=== PATIENT | male | born 1940 | race Caucasian/White ===

== ENCOUNTER → 2018-02-18 | Outpatient (CLI) | payer OTHER ==
[~2018-02-18] MED LIST: ASPI-496 PO; DOCU-131 PO; FENO160T PO; FINA5TAB4 PO; FLUO40CA2 PO; GEMF600T3 PO; GLIM1TAB2 PO; LEVO50TA5 PO; LOVA40TA2 PO; METF850T2 PO; OMEP20TA62 PO; OXYC-302 PO; TAMS0.4C2 PO; TEST200V3 IM; TIZA4TAB PO
[2018-02-18 13:12] LABS: BASOPHILS # (AUTO) 0.03 x10^3/uL (0-0.1); BASOPHILS % (AUTO) 1 % (0-1); EOSINOPHILS # (AUTO) 0.08 x10^3/uL (0-0.4); EOSINOPHILS % (AUTO) 2 % (1-7); LYMPHOCYTES # (AUTO) 1.53 x10^3/uL (1-3.4); LYMPHOCYTES % (AUTO) 30 % (22-44); MD NO; MEAN CORPUSCULAR HEMOGLOBIN 30.4 pg (27.5-34.5); MEAN CORPUSCULAR HGB CONC 33.2 g/dL (33.2-36.2); MEAN CORPUSCULAR VOLUME 91.6 fL (81-97); MEAN PLATELET VOLUME 8.4 fL (7.4-10.4); MONOCYTES # (AUTO) 0.49 x10^3/uL (0.2-0.8); MONOCYTES % (AUTO) 10 % (2-9); NEUTROPHILS # (AUTO) 2.93 x10^3/uL (1.8-6.8); NEUTROPHILS % (AUTO) 58 % (42-75); PLATELET COUNT 272 x10^3/uL (130-400); RED BLOOD COUNT 4.41 x10^6/uL (4.38-5.82); RED CELL DISTRIBUTION WIDTH 14.2 % (9.4-14.8)
[2018-02-18 13:21] LABS: INTERNATIONAL NORMALIZED RATIO 1.04 (0.93-1.1); PROTHROMBIN TIME 10.8 Seconds (9.6-11.5)
[2018-02-18 13:26] LABS: ALANINE AMINOTRANSFERASE 43 U/L (12-78); ALBUMIN 3.7 g/dL (3.4-5.0); ANION GAP 7 mmol/L (5-15); CALCIUM 8.4 mg/dL (8.5-10.1); CHLORIDE 112 mmol/L (98-107); CREATININE 1.03 mg/dL (0.7-1.3)
[2018-02-18 13:28] LABS: ALKALINE PHOSPHATASE 60 U/L (45-117); BILIRUBIN,TOTAL 0.5 mg/dL (0.2-1.0); TOTAL PROTEIN 7.9 g/dL (6.4-8.2)
== END | disposition home or self-care (01) ==
LOC: STAR 12:28
PROVIDERS: ATTEND Neurological Surgery
DX: Z01.818 Encounter for other preprocedural examination (principal); M48.061 Spinal stenosis, lumbar region without neurogenic claudication; I49.1 Atrial premature depolarization; J44.9 Chronic obstructive pulmonary disease, unspecified
CPT/HCPCS: 36415; 71046; 80053; 85025; 85610; 85730; 93005

== ENCOUNTER 2018-03-04 10:03 | Inpatient (IN) | payer OTHER ==
[~2018-03-04] VITALS: Ht 162.6 cm; Wt 103.3 kg
[~2018-03-04 10:03] MED LIST changes: +BACITRACIN 50,000 UNIT ONE; +BACITRACIN OINT 500U/GM, 15 GM ONE; +BUPIVACAINE/PF 0.25% ONE; +THROMBIN 20,000 UNIT VIAL TP ONE
[2018-03-04] MEDS ORDERED: LACTATED RINGERS 1,000 ML IV SCH (10:27)
[2018-03-04] MEDS ORDERED: GABAPENTIN 300 MG CAPSULE PO ONE (10:30)
[2018-03-04] MEDS ORDERED: METOCLOPRAMIDE 10MG TABLET PO ONE (10:30)
[2018-03-04] MEDS ORDERED: DIAZEPAM 5 MG TABLET PO ONE (10:30)
[2018-03-04] MEDS ORDERED: FAMOTIDINE 20 MG TABLET PO ONE (10:30)
[2018-03-04] MEDS ORDERED: ACETAMINOPHEN 500 MG TABLET PO ONE (10:30)
[2018-03-04 11:01] VITALS: BP 153/85
[2018-03-04] MEDS ORDERED: MIDAZOLAM 1 MG/ML, 2ML ONE (11:41)
[2018-03-04] MEDS ORDERED: FENTANYL PF 250 MCG/5ML ONE (11:41)
[2018-03-04] MEDS ORDERED: ROCURONIUM 10 MG/ML,10ML ONE (12:28)
[2018-03-04] MEDS ORDERED: CEFAZOLIN 1,000 MG ONE (12:28)
[2018-03-04] MEDS ORDERED: DEXAMETHASONE 4 MG/ML, 1ML ONE (12:28)
[2018-03-04] MEDS ORDERED: PHENYLEPHRINE 10 MG/ML ONE (12:28)
[2018-03-04] MEDS ORDERED: PROPOFOL 10 MG/ML, 20ML ONE (12:28)
[2018-03-04] MEDS ORDERED: SUCCINYLCHOLINE 20 MG/ML, 10ML ONE (12:28)
[2018-03-04] MEDS ORDERED: KETAMINE 10 MG/ML, 20ML ONE (12:28)
[2018-03-04] MEDS ORDERED: PROPOFOL 50 ML ONE (14:04)
[2018-03-04] MEDS ORDERED: BACITRACIN OINT 500U/GM, 15 GM TP ONE (14:54)
[2018-03-04] MEDS ORDERED: ONDANSETRON ODT 8 MG PO PRN (15:00)
[2018-03-04] MEDS ORDERED: DIAZEPAM 5 MG/ML, 2ML IVPush PRN (15:00)
[2018-03-04] MEDS ORDERED: PROMETHAZINE 25 MG/ML, 1ML IV PRN (15:00)
[2018-03-04] MEDS ORDERED: OXYcodone 5 MG/5 ML ORAL.SOL UDC PO PRN (15:00)
[2018-03-04] MEDS ORDERED: MORPHINE SULFATE 4 MG/ML, 1ML IVPush PRN (15:00)
[2018-03-04] MEDS ORDERED: ALBUTEROL SULFATE 2.5 MG/3 ML NPPB PRN (15:00)
[2018-03-04] MEDS ORDERED: FENTANYL PF 100 MCG/2ML IV PRN (15:00)
[2018-03-04] MEDS ORDERED: OXYcodone 5 MG/5 ML ORAL.SOL UDC ONE (15:40)
[2018-03-04] MEDS ORDERED: METHOCARBAMOL 1,000 MG in DEXTROSE 5% 100 ML IV ONE (16:00)
[2018-03-04] MEDS ORDERED: BISACODYL 10 MG SUPP PR PRN (18:30)
[2018-03-04] MEDS ORDERED: ONDANSETRON 2MG/ML, 2ML IV PRN (18:30)
[2018-03-04] MEDS ORDERED: ACETAMINOPHEN 325 MG TABLET PO PRN (18:30)
[2018-03-04] MEDS ORDERED: DIPHENHYDRAMINE 50 MG/ML, 1ML IVPush PRN (18:30)
[2018-03-04] MEDS ORDERED: OMEPRAZOLE 20 MG CAPSULE.DR PO PRN (18:30)
[2018-03-04] MEDS ORDERED: MAGNESIUM HYDROXIDE 8%, 30ML UDC PO PRN (18:30)
[2018-03-04] MEDS ORDERED: DIPHENHYDRAMINE 50 MG CAPSULE PO PRN (18:30)
[2018-03-04] MEDS ORDERED: PROMETHAZINE 25 MG/ML, 1ML IM PRN (18:30)
[2018-03-04] MEDS ORDERED: ACETAMINOPHEN 650 MG SUPP PR PRN (18:30)
[2018-03-04] MEDS ORDERED: DIPHENHYDRAMINE 50 MG/ML, 1ML IM PRN (18:30)
[2018-03-04] MEDS ORDERED: CYCLOBENZAPRINE 10 MG TABLET PO PRN (18:30)
[2018-03-04] MEDS: morphine SULFATE 10 MG/ML, 1ML IV PRN (18:37)
[2018-03-04 18:55] VITALS: BP 149/88
[2018-03-04] MEDS: NS + 20MEQ KCL 1,000 ML IV SCH (20:13)
[2018-03-04] MEDS: FLUOXETINE HCL 20 MG CAPSULE PO SCH (20:14)
[2018-03-04] MEDS: LOVASTATIN 40 MG TABLET PO SCH (20:14)
[2018-03-04] MEDS: INSULIN REGULAR 100 UNITS/ML, 3ML VIAL SQ-INSULIN SCH (20:44)
[2018-03-04] MEDS: CEFAZOLIN PMX 2GM/50ML 50 ML IVPB SCH (21:07)
[2018-03-04] MEDS: OXYcodone/APAP 5/325MG TABLET PO PRN (21:43)
[2018-03-04 23:37] VITALS: BP 119/75
[2018-03-04] MEDS: METHOCARBAMOL 750 MG in DEXTROSE 5% 100 ML IV SCH (23:50)
[2018-03-05] MEDS: OXYcodone/APAP 5/325MG TABLET PO PRN ×4 (02:00→21:30)
[2018-03-05 03:22] VITALS: BP 129/69
[2018-03-05] MEDS: NS + 20MEQ KCL 1,000 ML IV SCH ×2 (04:30→05:36)
[2018-03-05] MEDS: CEFAZOLIN PMX 2GM/50ML 50 ML IVPB SCH (05:35)
[2018-03-05] MEDS: LEVOTHYROXINE 50 MCG TABLET PO SCH (05:36)
[2018-03-05] MEDS: INSULIN REGULAR 100 UNITS/ML, 3ML VIAL SQ-INSULIN SCH ×4 (06:17→21:00)
[2018-03-05 07:31] VITALS: BP 182/71
[2018-03-05] MEDS: SENNA/DOCUSATE TABLET PO SCH (08:39)
[2018-03-05] MEDS: FINASTERIDE 5 MG TABLET PO SCH (08:39)
[2018-03-05] MEDS: FENOFIBRATE 145 MG TABLET PO SCH (08:39)
[2018-03-05] MEDS: metFORMIN 850 MG TABLET PO SCH ×2 (08:39→17:36)
[2018-03-05] MEDS: METHOCARBAMOL 750 MG in DEXTROSE 5% 100 ML IV SCH ×3 (08:39→23:55)
[2018-03-05] MEDS: morphine SULFATE 10 MG/ML, 1ML IV PRN ×3 (10:21→23:46)
[2018-03-05 13:32] VITALS: BP 123/71
[2018-03-05 19:30] VITALS: BP 129/66
[2018-03-05] MEDS: FLUOXETINE HCL 20 MG CAPSULE PO SCH (21:30)
[2018-03-05] MEDS: LOVASTATIN 40 MG TABLET PO SCH (21:30)
[2018-03-06] MEDS: NS + 20MEQ KCL 1,000 ML IV SCH ×2 (00:30→10:30)
[2018-03-06 01:51] VITALS: BP 129/77
[2018-03-06] MEDS: morphine SULFATE 10 MG/ML, 1ML IV PRN ×2 (03:15→07:55)
[2018-03-06] MEDS ORDERED: DIAZEPAM 5 MG/ML, 2ML IV ONE (04:30)
[2018-03-06] MEDS ORDERED: KETOROLAC 30 MG/1 ML IV ONE (04:30)
[2018-03-06] MEDS: METHOCARBAMOL 750 MG TABLET PO SCH ×2 (06:17→15:15)
[2018-03-06] MEDS: LEVOTHYROXINE 50 MCG TABLET PO SCH (06:17)
[2018-03-06] MEDS: INSULIN REGULAR 100 UNITS/ML, 3ML VIAL SQ-INSULIN SCH ×2 (07:00→11:00)
[2018-03-06 08:00] VITALS: BP 149/87
[2018-03-06] MEDS: FENOFIBRATE 145 MG TABLET PO SCH (08:45)
[2018-03-06] MEDS: METHOCARBAMOL 750 MG in DEXTROSE 5% 100 ML IV SCH (08:45)
[2018-03-06] MEDS: SENNA/DOCUSATE TABLET PO SCH (08:46)
[2018-03-06] MEDS: FINASTERIDE 5 MG TABLET PO SCH (08:46)
[2018-03-06] MEDS: metFORMIN 850 MG TABLET PO SCH (08:46)
[2018-03-06] MEDS ORDERED: OXYcodone/APAP 10/325MG TABLET PO PRN (09:30)
[2018-03-06] MEDS ORDERED: MAGNESIUM HYDROXIDE 8%, 30ML UDC PO PRN (09:30)
[2018-03-06 15:05] VITALS: BP 100/63
[2018-03-06] MEDS ORDERED: POLY17PO5 PO (16:47)
[2018-03-06] MEDS ORDERED: OXYC-307 PO (16:47)
[2018-03-06] MEDS ORDERED: CYCL5TAB PO (16:47)
== END 2018-03-06 17:40 | disposition home or self-care (01) | DRG 515 ==
LOC: ORIP 10:03 → 4NOR 17:17
PROVIDERS: ADMIT Neurological Surgery; ATTEND Neurological Surgery
PROC: 4A11X4G Monitoring of Peripheral Nervous Electrical Activity, Intraoperative, External Approach (ICD-10-PCS; 2018-03-04)
PROC: 01NB0ZZ Release Lumbar Nerve, Open Approach (ICD-10-PCS; principal; 2018-03-04 12:00)
DX: M48.062 Spinal stenosis, lumbar region with neurogenic claudication (principal); J96.21 Acute and chronic respiratory failure with hypoxia; M43.16 Spondylolisthesis, lumbar region; E11.9 Type 2 diabetes mellitus without complications; E03.9 Hypothyroidism, unspecified; E78.5 Hyperlipidemia, unspecified; K21.9 Gastro-esophageal reflux disease without esophagitis; N40.0 Benign prostatic hyperplasia without lower urinary tract symptoms; G47.33 Obstructive sleep apnea (adult) (pediatric)
CPT/HCPCS: 36415; 72100; 82962; 86850; 86900; J0690; J1100; J1885; J2250; J2704; J3010; J3360; J3480; J3490; J0330; J2270; J2370; J2800; J7120